=== PATIENT | female | born 1975 | race Asian ===

== ENCOUNTER 2024-03-24 18:27 | Emergency (ER) | payer MEDICAID ==
[~2024-03-24] VITALS: Ht 152.4 cm; Wt 58.0 kg
[2024-03-24 18:32] VITALS: TEMP 97.8
[2024-03-24 20:30] VITALS: BP 125/77; PULSE 80; RESP 18; O2SAT 100
[2024-03-24] MEDS: ACETAMINOPHEN 325 MG TABLET PO ONE (20:32)
[2024-03-24] MEDS: IBUPROFEN 400 MG TABLET PO ONE (20:33)
== END 2024-03-24 21:33 | disposition home or self-care (01) ==
LOC: EMS 18:27
DX: R51.9 Headache, unspecified (principal); V89.2XXA Person injured in unspecified motor-vehicle accident, traffic, initial encounter; Y93.89 Activity, other specified; Y92.410 Unspecified street and highway as the place of occurrence of the external cause; Y99.8 Other external cause status
CPT/HCPCS: 99283